=== PATIENT | male | born 1985 | race African-American/Black ===

== ENCOUNTER 2017-04-17 19:41 | Emergency (ER) | payer MEDICAID, OTHER ==
[~2017-04-17] VITALS: Ht 175.3 cm; Wt 123.0 kg
[2017-04-18] MEDS ORDERED: KETOROLAC 60MG/2ML VIAL IM ONE
[2017-04-18 00:35] VITALS: BP 126/81
== END 2017-04-18 00:35 | disposition home or self-care (01) ==
LOC: ER 19:56
DX: R68.84 Jaw pain (principal); I10 Essential (primary) hypertension; E11.9 Type 2 diabetes mellitus without complications; Z88.0 Allergy status to penicillin
CPT/HCPCS: 70486; 96372; 99284; J1885; Z7610

== ENCOUNTER 2018-05-08 19:47 | Emergency (ER) | payer OTHER ==
[~2018-05-08] VITALS: Ht 175.3 cm; Wt 128.9 kg
[2018-05-08 21:17] VITALS: BP 137/93
== END 2018-05-08 22:00 | disposition left against medical advice (07) ==
LOC: ER 19:47
DX: Z53.21 Procedure and treatment not carried out due to patient leaving prior to being seen by health care provider (principal)
CPT/HCPCS: 82962

== ENCOUNTER 2018-05-28 08:13 | Emergency (ER) | payer OTHER ==
[~2018-05-28] VITALS: Ht 175.3 cm; Wt 125.0 kg
[2018-05-28] MEDS ORDERED: NITROGLYCERIN 0.4MG TABLET SL SL PRN (09:00)
[2018-05-28] MEDS ORDERED: ASPIRIN 325MG EC TABLET PO ONE (09:00)
[2018-05-28 09:39] LABS: BASOPHILS % 1.1 % (0.0-2.0); EOSINOPHILS % 2.3 % (0.0-5.0); HEMATOCRIT. 46.1 % (42.0-52.0); HEMOGLOBIN. 15.3 g/dL (14.0-18.0); LYMPHOCYTES % 31.9 % (20.0-50.0); MEAN CORPUSCULAR HEMOGLOBIN 26.3 pg (28.0-32.0); MEAN CORPUSCULAR VOLUME 79.1 fL (80.0-94.0); MEAN PLATELET VOLUME 8.7 fl (7.4-10.4); NEUTROPHILS % 55.7 % (40.0-76.0); PLATELET 265 x1000/uL (130-400); RED BLOOD CELL COUNT 5.83 mill/uL (4.7-6.1); RED CELL DISTRIBUTION WIDTH 13.8 % (11.6-14.6)
[2018-05-28 09:42] LABS: CHLORIDE 106 mEq/L (98-107)
[2018-05-28 09:48] LABS: D-DIMER < 0.19 mg/L FEU (<0.50); PROTHROMBIN TIME 10.9 sec (9.4-11.6)
[2018-05-28 13:50] VITALS: BP 148/95
== END 2018-05-28 13:57 | disposition home or self-care (01) ==
LOC: ER 09:30
DX: R07.89 Other chest pain (principal); E11.9 Type 2 diabetes mellitus without complications; I10 Essential (primary) hypertension; F12.10 Cannabis abuse, uncomplicated; Z88.0 Allergy status to penicillin
CPT/HCPCS: 36415; 71045; 80053; 83880; 84484; 85025; 85379; 85610; 93005; 99285

== ENCOUNTER 2018-08-06 04:16 | Emergency (ER) | payer OTHER ==
[~2018-08-06] VITALS: Ht 175.3 cm; Wt 129.5 kg
[2018-08-06 04:28] VITALS: BP 169/105
== END 2018-08-06 05:30 | disposition left against medical advice (07) ==
LOC: ER 04:16
DX: R19.5 Other fecal abnormalities (principal); Z53.21 Procedure and treatment not carried out due to patient leaving prior to being seen by health care provider